=== PATIENT | male | born 1955 | race Caucasian/White ===

== ENCOUNTER 2017-02-12 12:15 | Emergency (ER) | payer BC ==
[~2017-02-12] VITALS: Ht 167.6 cm; Wt 83.9 kg
--- NOTE | 2017-02-12 12:20 | NUR ---
pt is in room #2a. dr Landis evaluated the pt.
[2017-02-12] MEDS: HYDROCODONE/APAP 5-325MG TABLET PO ONE (12:30)
[2017-02-12] MEDS ORDERED: HYDROCODONE/APAP 5-325MG TABLET ONE (12:42)
--- NOTE | 2017-02-12 13:26 | NUR ---
PT WAS D/C TO HOME. D/C INSTRUCTIONS GIVEN TO THE PT.
[2017-02-12 13:27] VITALS: BP 143/76
== END 2017-02-12 13:28 | disposition home or self-care (01) ==
LOC: ER 12:15
DX: S20.211A Contusion of right front wall of thorax, initial encounter (principal); W18.30XA Fall on same level, unspecified, initial encounter; Y93.89 Activity, other specified; Y92.009 Unspecified place in unspecified non-institutional (private) residence as the place of occurrence of the external cause; Y99.9 Unspecified external cause status
CPT/HCPCS: 71101; A4663

== ENCOUNTER 2017-02-15 11:26 | Emergency (ER) | payer BC ==
[~2017-02-15] VITALS: Ht 167.6 cm; Wt 83.9 kg
[2017-02-15] MEDS ORDERED: IV NORMAL SALINE 1000 ML BAG IV ONE (12:00)
[2017-02-15] MEDS ORDERED: KETOROLAC TROMETHAMINE 30 MG INJ IVP ONE (12:00)
--- NOTE | 2017-02-15 12:08 | NUR ---
PT IS IN ROOM #2B. DR LEE EVALUATED THE PT.
[2017-02-15 12:17] LABS: BASOPHILS # (AUTO) 0.2 K/uL (0.0-8.0); BASOPHILS % (AUTO) 1.8 % (0.0-2.0); EOSINOPHILS # (AUTO) 0.1 K/uL (0.0-0.7); EOSINOPHILS % (AUTO) 0.9 % (0.0-7.0); HEMATOCRIT 49.6 % (40-50); HEMOGLOBIN 17.1 G/DL (14.0-18.0); LYMPHOCYTES # (AUTO) 1.6 K/UL (0.8-4.8); LYMPHOCYTES % (AUTO) 16.3 % (20.5-51.5); MEAN CORPUSCULAR HEMOGLOBIN 31.2 UUG (27.0-31.0); MEAN CORPUSCULAR HGB CONC 35 g/dL (32.0-37.0); MEAN CORPUSCULAR VOLUME 90.7 FL (82.0-92.0); MONOCYTES # (AUTO) 0.9 K/UL (0.1-1.30); MONOCYTES % (AUTO) 9.2 % (0.0-11.0); NEUTROPHILS # (AUTO) 6.7 K/UL (1.8-8.9); NEUTROPHILS % (AUTO) 71.8 % (38.5-71.5); PLATELET COUNT (AUTO) 240 K/UL (150-450); RED BLOOD CELL COUNT(AUTO) 5.47 MIL/UL (4.7-6.1); WHITE BLOOD COUNT (AUTO) 9.5 K/UL (4.0-11.2)
[2017-02-15] MEDS ORDERED: KETOROLAC TROMETHAMINE 30 MG INJ ONE (12:21)
[2017-02-15 12:24] LABS: CREATININE 1.2 mg/dL (0.6-1.3); POTASSIUM 4.1 mmol/L (3.5-5.1)
[2017-02-15 12:30] LABS: BILIRUBIN,DIRECT 0.1 mg/dL (0.0-0.2); BILIRUBIN,TOTAL 0.7 mg/dL (0.2-1.0); TOTAL PROTEIN, SERUM 8.3 g/dL (6.4-8.2)
[2017-02-15 12:40] LABS: BAND % (MANUAL) 4 % (0-10); EOSINOPHILS % (MANUAL) 1 % (0-8); LYMPHOCYTES % (MANUAL) 19 % (20-40); MONOCYTES % (MANUAL) 11 % (2-10); NEUTROPHILS % (MANUAL) 65 % (42-75)
[2017-02-15] MEDS ORDERED: IV NORMAL SALINE 250 ML IV ONE (13:03)
[2017-02-15] MEDS ORDERED: NORMAL SALINE FLUSH 10 ML DISP.SYRIN ONE (13:03)
[2017-02-15] MEDS ORDERED: IOHEXOL 350 100 ML INFUS..BTL ONE (13:03)
--- NOTE | 2017-02-15 14:13 | NUR ---
PT WAS D/C TO HOME. D/C INSTRUCTIONS GIVEN TO THE PT.
[2017-02-15 14:14] VITALS: BP 138/81
== END 2017-02-15 14:15 | disposition home or self-care (01) ==
LOC: ER 11:26
DX: S29.9XXA Unspecified injury of thorax, initial encounter (principal); X58.XXXA Exposure to other specified factors, initial encounter; Y93.89 Activity, other specified; Y99.8 Other external cause status; Y92.89 Other specified places as the place of occurrence of the external cause
CPT/HCPCS: 36415; 70030-TC; 71275; 85025; 85730; 93005; A4663; J1885; J3490; J7050; Q9967

== ENCOUNTER 2023-05-28 17:44 | Emergency (ER) | payer MEDICARE, BC ==
[~2023-05-28] VITALS: Ht 167.6 cm; Wt 79.4 kg
[2023-05-28] MEDS ORDERED: IBUP-1957 PO (18:10)
[2023-05-28 19:01] VITALS: BP 141/82; TEMP 98.2; O2SAT 98
== END 2023-05-28 19:03 | disposition home or self-care (01) ==
LOC: ER 17:58
DX: M79.671 Pain in right foot (principal); Z79.1 Long term (current) use of non-steroidal anti-inflammatories (NSAID)
CPT/HCPCS: 73630; A4663